=== PATIENT | female | born 1980 | race Caucasian/White ===

== ENCOUNTER 2018-02-19 20:44 | Emergency (ER) | payer OTHER, MEDICAID ==
[~2018-02-19] VITALS: Ht 154.9 cm; Wt 104.3 kg
[~2018-02-19 20:44] MED LIST: ALBUTEROL INH INH; ALBUTEROL2.5 MG/31 IH; CELEBREX 200 M200 M1 PO; CELEXA10 MG PO; CIPRO250 MG PO; CIPROFLOXACIN500 M3 OR; DIFLUCAN150 MG PO; DOXYCYCLINE 10100 M1 PO; FLEXERIL PO; HYDROCODONE-AP1 EAC6 PO; IBUPROFEN 800800 MG PO; LIDOCAINE VISC100 M1 MM; MEDROLDOSEPACK PO; METHADONE; MOBIC7.5 MG PO; NORCO 5-325 TA1 EACH PO; PENICILLIN V P500 MG PO; PREDNISONE 10 M10 M1 PO; PREDNISONE 20 M20 M1 PO; PROVENTIL IH; PROZAC; PYRIDIUM200 MG PO; ROBAXIN 750 MG750 M1 PO; TESSALON200 MG PO; TYLENOL325 MG PO; ULTRAM 50MG TAB50 MG PO; ZPAK PO
[2018-02-19] MEDS ORDERED: ZPAK PO (21:05)
[2018-02-19] MEDS ORDERED: PROMETHAZINE-D120 M1 PO (21:05)
[2018-02-19] MEDS ORDERED: TESSALON PERLE100 MG PO (21:05)
[2018-02-19] MEDS ORDERED: PREDNISONE 20 M20 M1 PO (21:06)
[2018-02-19 21:39] VITALS: BP 136/59
== END 2018-02-19 21:40 | disposition home or self-care (01) ==
LOC: M.ERS 20:44
DX: J20.9 Acute bronchitis, unspecified (principal); G89.29 Other chronic pain; M54.9 Dorsalgia, unspecified